=== PATIENT | female | born 1965 | race Caucasian/White ===

== ENCOUNTER 2024-04-07 14:54 | Inpatient (IN) | payer MEDICARE, OTHER ==
[~2024-04-07] VITALS: Ht 162.6 cm; Wt 49.4 kg
[2024-04-08 01:44] VITALS: BP 105/58; TEMP 98.4; O2SAT 98
[2024-04-08] MEDS ORDERED: LORAZEPAM 0.5 MG TABLET PO PRN (02:00)
[2024-04-08] MEDS ORDERED: TRAZ-257 PO (02:00)
[2024-04-08] MEDS ORDERED: MAG HYDROX/AL HYDROX/SIMETH 30 ML UDC PO PRN (02:00)
[2024-04-08] MEDS ORDERED: MAGNESIUM HYDROXIDE 30 ML UDC PO PRN (02:00)
[2024-04-08] MEDS ORDERED: ACETAMINOPHEN 325 MG TABLET PO PRN (02:00)
[2024-04-08] MEDS ORDERED: TEMAZEPAM 7.5 MG CAPSULE PO PRN (02:00)
[2024-04-08] MEDS ORDERED: ROSU20TA32 PO (02:04)
[2024-04-08] MEDS ORDERED: BISA5TAB10 PO (02:04)
[2024-04-08] MEDS ORDERED: LEVO-146 PO (02:06)
[2024-04-08] MEDS ORDERED: METF-440 PO (02:07)
[2024-04-08] MEDS ORDERED: GABA-532 PO (02:08)
[2024-04-08] MEDS ORDERED: DEUT12TA PO (02:13)
[2024-04-08] MEDS ORDERED: BENZ2TAB7 PO (02:14)
[2024-04-08] MEDS ORDERED: TRAM50TA2 PO (02:15)
[2024-04-08] MEDS ORDERED: LATA7.5D EACHEYE (02:17)
[2024-04-08] MEDS: BLOOD SUGAR DIAGNOSTIC 1 EACH STRIP IN ONE (02:19)
[2024-04-08 03:09] VITALS: BP 105/58; TEMP 98.4; O2SAT 98
[2024-04-08] MEDS ORDERED: DEXTROSE 50%-WATER 50 ML DISP.SYRIN IV PRN (06:30)
[2024-04-08] MEDS ORDERED: INSULIN REGULAR, HUMAN 100 UNIT/ML 3 ML VIAL SQ PRN (06:30)
[2024-04-08 07:56] LABS: BASOPHILS % (AUTO) 0.7 % (0.0-2.0); EOSINOPHILS # (AUTO) 0.1 K/uL (0.0-0.7); EOSINOPHILS % (AUTO) 1.4 % (0.0-6.0); HEMATOCRIT 43 % (33-45); LYMPHOCYTES # (AUTO) 1.8 K/uL (0.8-4.8); LYMPHOCYTES % (AUTO) 31.7 % (20.0-44.0); MEAN CORPUSCULAR HEMOGLOBIN 30 PG (26.0-33.0); MEAN CORPUSCULAR HGB CONC 33 g/dl (31.0-36.0); MEAN CORPUSCULAR VOLUME 92 fL (82-100); MONOCYTES # (AUTO) 0.5 K/uL (0.1-1.30); MONOCYTES % (AUTO) 9.3 % (2.0-12.0); NEUTROPHILS # (AUTO) 3.3 K/uL (1.8-8.9); NEUTROPHILS % (AUTO) 56.9 % (43.0-81.0); PLATELET COUNT (AUTO) 233 K/uL (150-450); RED BLOOD CELL COUNT(AUTO) 4.67 MIL/uL (4.0-5.2); RED CELL DISTRIBUTION WIDTH 13.2 % (11.5-15.0); WHITE BLOOD COUNT (AUTO) 5.7 K/uL (4.3-11.0)
[2024-04-08 08:00] VITALS: BP 120/61; TEMP 98.1; O2SAT 98
[2024-04-08 08:30] LABS: CALCIUM, SERUM 9.9 mg/dL (8.5-10.1); CREATININE 0.5 mg/dL (0.6-1.3); POTASSIUM 4.3 mmol/L (3.5-5.1)
[2024-04-08] MEDS: BLOOD SUGAR DIAGNOSTIC 1 EACH STRIP IN SCH (08:39)
[2024-04-08 16:00] VITALS: BP 100/60; TEMP 97.9; O2SAT 100
[2024-04-08] MEDS: risperiDONE 1 MG TABLET PO SCH (17:42)
[2024-04-08] MEDS: DIVALPROEX SODIUM 250 MG TABLET.DR PO SCH (17:42)
[2024-04-08] MEDS ORDERED: BISACODYL (5 MG) 5 MG TABLET.DR PO PRN (19:00)
[2024-04-08 20:00] VITALS: BP 133/65; TEMP 98; O2SAT 100
[2024-04-09] MEDS: LEVOTHYROXINE SODIUM 50 MCG TABLET PO SCH (07:47)
[2024-04-09 08:00] VITALS: BP 145/68; TEMP 98; O2SAT 99
[2024-04-09] MEDS: ATORVASTATIN 40 MG TABLET PO SCH (08:29)
[2024-04-09] MEDS: METFORMIN 500 MG TABLET PO SCH (08:29)
[2024-04-09] MEDS: GABAPENTIN 100 MG CAPSULE PO SCH (08:29)
[2024-04-09 16:00] VITALS: BP 139/61; TEMP 97.7; O2SAT 97
[2024-04-09 20:32] VITALS: BP 121/62; TEMP 97.9; O2SAT 98
[2024-04-10 08:00] VITALS: BP 119/57; TEMP 98.4; O2SAT 100
[2024-04-10] MEDS: GLUCERNA SHAKE 237 ML CAN PO SCH (08:14)
[2024-04-10 16:09] VITALS: BP 127/57; TEMP 98.6; O2SAT 99
[2024-04-10] MEDS: LATANOPROST EYE DROP 0.005% 2.5 ML BOTTLE EACHEYE SCH (18:11)
[2024-04-10 21:01] VITALS: BP 120/56; TEMP 98.2; O2SAT 99
[2024-04-11 08:00] VITALS: BP 134/64; TEMP 98.6; O2SAT 99
[2024-04-11] MEDS: TRAMADOL HCL 50 MG TABLET PO PRN (08:25)
[2024-04-11 16:00] VITALS: BP 124/53; TEMP 98.6; O2SAT 100
[2024-04-11 20:32] VITALS: BP 121/64; TEMP 98.6; O2SAT 97
[2024-04-12 08:00] VITALS: BP 120/62; TEMP 98; O2SAT 100
[2024-04-12 16:21] VITALS: BP 136/57; TEMP 98; O2SAT 96
[2024-04-12 20:26] VITALS: BP 127/57; TEMP 98.4; O2SAT 99
[2024-04-13 08:00] VITALS: BP 122/66; TEMP 97.9; O2SAT 97
[2024-04-13 16:17] VITALS: BP 117/53; TEMP 97.8; O2SAT 98
[2024-04-13 20:00] VITALS: BP 120/47; TEMP 97.9; O2SAT 100
[2024-04-14 07:30] VITALS: BP 114/55; TEMP 97.9; O2SAT 97
[2024-04-14 15:30] VITALS: BP 124/69; TEMP 98; O2SAT 100
[2024-04-14 20:00] VITALS: BP 128/60; TEMP 98.4; O2SAT 97
[2024-04-14] MEDS: risperiDONE 1 MG TABLET PO SCH (21:27)
[2024-04-15 08:10] VITALS: BP 116/69; TEMP 97.5; O2SAT 95
[2024-04-15 16:33] VITALS: BP 117/61; TEMP 98; O2SAT 99
[2024-04-15 20:00] VITALS: BP 125/67; TEMP 98.4; O2SAT 96
[2024-04-16 08:17] VITALS: BP 122/67; TEMP 97.4; O2SAT 96
[2024-04-16 15:45] VITALS: BP 138/66; TEMP 98.4; O2SAT 98
[2024-04-16 20:36] VITALS: BP 132/68; TEMP 98.2; O2SAT 99
[2024-04-17 07:00] VITALS: BP_SYST 123; BP_SYST 152; BP_DIAS 54; BP_DIAS 65; TEMP 98.1; O2SAT 100; O2SAT 99
[2024-04-17 08:03] LABS: BASOPHILS % (AUTO) 0.3 % (0.0-2.0); EOSINOPHILS % (AUTO) 0.5 % (0.0-6.0); HEMATOCRIT 44 % (33-45); HEMOGLOBIN 14.6 g/dL (11.5-14.8); LYMPHOCYTES # (AUTO) 2.1 K/uL (0.8-4.8); LYMPHOCYTES % (AUTO) 28.4 % (20.0-44.0); MEAN CORPUSCULAR HEMOGLOBIN 30 PG (26.0-33.0); MEAN CORPUSCULAR HGB CONC 33 g/dl (31.0-36.0); MEAN CORPUSCULAR VOLUME 91 fL (82-100); MONOCYTES # (AUTO) 0.6 K/uL (0.1-1.30); MONOCYTES % (AUTO) 7.5 % (2.0-12.0); NEUTROPHILS # (AUTO) 4.7 K/uL (1.8-8.9); NEUTROPHILS % (AUTO) 63.3 % (43.0-81.0); PLATELET COUNT (AUTO) 236 K/uL (150-450); RED BLOOD CELL COUNT(AUTO) 4.83 MIL/uL (4.0-5.2); RED CELL DISTRIBUTION WIDTH 12.9 % (11.5-15.0); WHITE BLOOD COUNT (AUTO) 7.4 K/uL (4.3-11.0)
[2024-04-17 08:20] LABS: ALBUMIN 3.2 g/dL (3.4-5.0); BILIRUBIN,TOTAL 0.3 mg/dL (0.2-1.0); CREATININE 0.6 mg/dL (0.6-1.3); POTASSIUM 4.3 mmol/L (3.5-5.1); TOTAL PROTEIN, SERUM 7.1 g/dL (6.4-8.2)
[2024-04-17 16:00] VITALS: BP 110/62; TEMP 97.9; O2SAT 95
[2024-04-17 20:09] VITALS: BP 116/54; TEMP 97.9; O2SAT 98
[2024-04-18 08:00] VITALS: BP 131/57; TEMP 97.7; O2SAT 100
[2024-04-18] MEDS ORDERED: ATORVASTATIN 40 MG TABLET PO SCH (21:00)
== END 2024-04-18 15:00 | DRG 885 ==
LOC: GPS 04-08 00:55
PROVIDERS: ADMIT Nurse Practitioner Psychiatric/Mental Health; ATTEND Nurse Practitioner Acute Care
DX: F25.0 Schizoaffective disorder, bipolar type (principal); F29 Unspecified psychosis not due to a substance or known physiological condition; F41.9 Anxiety disorder, unspecified; G20.A1 Parkinson's disease without dyskinesia, without mention of fluctuations; R41.9 Unspecified symptoms and signs involving cognitive functions and awareness; I10 Essential (primary) hypertension; Z79.899 Other long term (current) drug therapy; E86.0 Dehydration; R79.89 Other specified abnormal findings of blood chemistry; E11.9 Type 2 diabetes mellitus without complications; E78.5 Hyperlipidemia, unspecified; E03.9 Hypothyroidism, unspecified; Z91.199 Patient's noncompliance with other medical treatment and regimen due to unspecified reason; Z73.6 Limitation of activities due to disability
CPT/HCPCS: 36415; 80048-TC; 80053-TC; 80061-TC; 80164-TC; 82962-TC; 84443-TC; 85025-TC; 87081-TC; 97110-TC; 97116-TC; J1815

== ENCOUNTER 2024-04-29 15:55 | Inpatient (IN) | payer MEDICARE, OTHER ==
[~2024-04-29] VITALS: Ht 162.6 cm; Wt 63.0 kg
[~2024-04-29 15:55] MED LIST: BISA5TAB10 PO; GABA-532 PO; LATA7.5D EACHEYE; LEVO-146 PO; METF-440 PO; ROSU20TA32 PO; TRAM50TA2 PO
[2024-04-29] MEDS ORDERED: MAG30ORA PO (16:36)
[2024-04-29] MEDS ORDERED: ACET-868 PO (16:36)
[2024-04-29] MEDS ORDERED: TEMA7.5C PO (16:36)
[2024-04-29] MEDS ORDERED: DIVA-76 PO (16:36)
[2024-04-29] MEDS ORDERED: MAGN400O6 PO (16:36)
[2024-04-29] MEDS ORDERED: TRAM50TA2 PO (16:36)
[2024-04-29] MEDS ORDERED: TYL2T MC (16:36)
[2024-04-29] MEDS ORDERED: ATOR80TA PO (16:36)
[2024-04-29] MEDS ORDERED: LORA-258 PO (16:36)
[2024-04-29] MEDS ORDERED: RISP1TAB7 PO (16:36)
[2024-04-29] MEDS ORDERED: NUT.237L28 PO (16:36)
[2024-04-29 16:48] LABS: BASOPHILS % (AUTO) 0.5 % (0.0-2.0); EOSINOPHILS % (AUTO) 0.6 % (0.0-6.0); HEMATOCRIT 35 % (33-45); HEMOGLOBIN 11.8 g/dL (11.5-14.8); LYMPHOCYTES # (AUTO) 1.9 K/uL (0.8-4.8); LYMPHOCYTES % (AUTO) 23.9 % (20.0-44.0); MEAN CORPUSCULAR HEMOGLOBIN 31 PG (26.0-33.0); MEAN CORPUSCULAR HGB CONC 34 g/dl (31.0-36.0); MEAN CORPUSCULAR VOLUME 93 fL (82-100); MONOCYTES # (AUTO) 0.8 K/uL (0.1-1.30); MONOCYTES % (AUTO) 10.2 % (2.0-12.0); NEUTROPHILS % (AUTO) 64.8 % (43.0-81.0); PLATELET COUNT (AUTO) 224 K/uL (150-450); RED CELL DISTRIBUTION WIDTH 13.5 % (11.5-15.0); WHITE BLOOD COUNT (AUTO) 7.8 K/uL (4.3-11.0)
[2024-04-29 17:23] LABS: APPEARANCE,URINE Clear (CLEAR); BILIRUBIN,URINE Negative (NEGATIVE); BLOOD, URINE Trace-lysed Ery/uL (NEGATIVE); COLOR,URINE LIGHT YELLOW (YELLOW); KETONES,URINE Negative (NEGATIVE); LEUKOCYTE ESTERASE ,URINE Negative (NEGATIVE); NITRITE, URINE Negative (NEGATIVE); PH,URINE 6.5 (5.0-8.0); PROTEIN,URINE Negative (NEGATIVE); UGLUCOSE Negative (NEGATIVE); UROBILINOGEN,URINE 0.2 EU/dL (0.2)
[2024-04-29 17:38] LABS: CALCIUM, SERUM 8.9 mg/dL (8.5-10.1); CARBON DIOXIDE 28 mmol/L (21-32); CHLORIDE 103 mmol/L (98-107); CREATININE 0.6 mg/dL (0.6-1.3); GLUCOSE 84 mg/dL (74-106); SODIUM SERUM 136 mmol/L (136-145); UREA NITROGEN, BLOOD 18 mg/dL (7-18)
[2024-04-29 17:51] LABS: AMPHETAMINE, URINE NEGATIVE (NEGATIVE); BARBITURATE, URINE NEGATIVE (NEGATIVE); BENZODIAZEPINE, URINE NEGATIVE (NEGATIVE); CANNABINOID, URINE NEGATIVE (NEGATIVE); COCCAINE, URINE NEGATIVE (NEGATIVE); OPIATE, URINE NEGATIVE (NEGATIVE); PHENCYCLIDINE SCREEN,URINE NEGATIVE (NEGATIVE)
[2024-04-29 17:52] LABS: ACETAMINOPHEN 1 ug/ml (10-30); ALANINE AMINOTRANSFERASE 38 U/L (12-78); ALBUMIN 3.3 g/dL (3.4-5.0); ALCOHOL, BLOOD < 3 mg/dL (0-10); ALKALINE PHOSPHATASE 60 U/L (46-116); BILIRUBIN,TOTAL 0.3 mg/dL (0.2-1.0); TOTAL PROTEIN, SERUM 6.1 g/dL (6.4-8.2)
[2024-04-29 17:55] LABS: SALICYLATE 0.7 mg/dL (2.8-20.0)
[2024-04-29 18:02] LABS: ADD URINE CULTURE NO; BACTERIA,URINE Rare /HPF (None Seen); WBC,URINE 0-2 /HPF (0-3)
[2024-04-29 18:03] LABS: SQUAMOUS EPITHELIAL CELL,UR Few /HPF (None Seen)
[2024-04-29 19:53] LABS: ASPARTATE AMINOTRANSFERASE 27 U/L (15-37)
[2024-04-29 22:30] VITALS: BP 111/54; TEMP 97.9; O2SAT 98
[2024-04-29] MEDS ORDERED: MAG HYDROX/AL HYDROX/SIMETH 30 ML UDC PO PRN (22:30)
[2024-04-29] MEDS ORDERED: TEMAZEPAM 7.5 MG CAPSULE PO PRN ×2 (22:30)
[2024-04-29] MEDS ORDERED: MAGNESIUM HYDROXIDE 30 ML UDC PO PRN (22:30)
[2024-04-29] MEDS ORDERED: LORAZEPAM 0.5 MG TABLET PO PRN ×2 (22:30)
[2024-04-29] MEDS ORDERED: ACETAMINOPHEN 325 MG TABLET PO PRN (22:30)
[2024-04-29] MEDS ORDERED: TRAMADOL HCL 50 MG TABLET PO PRN (23:00)
[2024-04-29] MEDS: BLOOD SUGAR DIAGNOSTIC 1 EACH STRIP IN ONE (23:20)
[2024-04-29 23:46] VITALS: BP 130/73; TEMP 98; O2SAT 98
[2024-04-30 06:53] LABS: BASOPHILS % (AUTO) 0.4 % (0.0-2.0); EOSINOPHILS # (AUTO) 0.1 K/uL (0.0-0.7); EOSINOPHILS % (AUTO) 0.9 % (0.0-6.0); HEMATOCRIT 37 % (33-45); HEMOGLOBIN 11.9 g/dL (11.5-14.8); LYMPHOCYTES # (AUTO) 2.2 K/uL (0.8-4.8); LYMPHOCYTES % (AUTO) 30.5 % (20.0-44.0); MEAN CORPUSCULAR HEMOGLOBIN 30 PG (26.0-33.0); MEAN CORPUSCULAR HGB CONC 33 g/dl (31.0-36.0); MEAN CORPUSCULAR VOLUME 92 fL (82-100); MONOCYTES # (AUTO) 0.7 K/uL (0.1-1.30); MONOCYTES % (AUTO) 10.3 % (2.0-12.0); NEUTROPHILS # (AUTO) 4.1 K/uL (1.8-8.9); NEUTROPHILS % (AUTO) 57.9 % (43.0-81.0); PLATELET COUNT (AUTO) 237 K/uL (150-450); RED BLOOD CELL COUNT(AUTO) 3.96 MIL/uL (4.0-5.2); RED CELL DISTRIBUTION WIDTH 13.5 % (11.5-15.0); WHITE BLOOD COUNT (AUTO) 7.1 K/uL (4.3-11.0)
[2024-04-30 07:04] LABS: CALCIUM, SERUM 9.2 mg/dL (8.5-10.1); CREATININE 0.6 mg/dL (0.6-1.3); POTASSIUM 4.2 mmol/L (3.5-5.1)
[2024-04-30] MEDS: LEVOTHYROXINE SODIUM 50 MCG TABLET PO SCH (07:35)
[2024-04-30 08:00] VITALS: BP 106/65; TEMP 98; O2SAT 99
[2024-04-30] MEDS: GLUCERNA SHAKE 237 ML CAN PO SCH (08:04)
[2024-04-30] MEDS: GABAPENTIN 100 MG CAPSULE PO SCH (08:33)
[2024-04-30] MEDS: METFORMIN 500 MG TABLET PO SCH (08:33)
[2024-04-30] MEDS ORDERED: GLUCERNA SHAKE 237 ML CAN PO SCH (09:00)
[2024-04-30] MEDS: DIVALPROEX SODIUM 250 MG TABLET.DR PO SCH (14:17)
[2024-04-30] MEDS: risperiDONE 1 MG TABLET PO SCH (14:17)
[2024-04-30 16:00] VITALS: BP 111/64; TEMP 98.9; O2SAT 98
[2024-04-30 20:23] VITALS: BP 115/68; TEMP 98; O2SAT 98
[2024-04-30] MEDS: ATORVASTATIN 40 MG TABLET PO SCH (21:35)
[2024-04-30] MEDS: LATANOPROST EYE DROP 0.005% 2.5 ML BOTTLE OP SCH (21:36)
[2024-05-01] MEDS: LORAZEPAM 0.5 MG TABLET PO PRN (00:08)
[2024-05-01 08:00] VITALS: BP 118/53; TEMP 97.8; O2SAT 97
[2024-05-01 16:00] VITALS: BP 124/56; TEMP 98; O2SAT 96
[2024-05-01 21:02] VITALS: BP 104/58; TEMP 98; O2SAT 99
[2024-05-02] MEDS: TEMAZEPAM 7.5 MG CAPSULE PO PRN (02:36)
[2024-05-02 07:02] LABS: APPEARANCE,URINE CLEAR (CLEAR); BILIRUBIN,URINE NEGATIVE (NEGATIVE); BLOOD, URINE NEGATIVE Ery/uL (NEGATIVE); COLOR,URINE YELLOW (YELLOW); KETONES,URINE NEGATIVE (NEGATIVE); LEUKOCYTE ESTERASE ,URINE NEGATIVE (NEGATIVE); NITRITE, URINE NEGATIVE (NEGATIVE); PROTEIN,URINE NEGATIVE (NEGATIVE); UGLUCOSE NEGATIVE (NEGATIVE); UROBILINOGEN,URINE 0.2 EU/dL (0.2)
[2024-05-02 08:00] VITALS: BP 103/50; TEMP 98.6; O2SAT 100
[2024-05-02 16:00] VITALS: BP 118/56; TEMP 98; O2SAT 100
[2024-05-02 20:00] VITALS: BP 113/50; TEMP 98.2; O2SAT 98
[2024-05-02 20:13] VITALS: BP 113/50; TEMP 98.2; O2SAT 98
[2024-05-02] MEDS: DIVALPROEX SODIUM 500 MG TABLET.DR PO SCH (21:00)
[2024-05-03 08:00] VITALS: BP 125/56; TEMP 98; O2SAT 100
[2024-05-03 16:19] VITALS: BP 106/45; TEMP 98; O2SAT 97
[2024-05-03 20:53] VITALS: BP 107/47; TEMP 98.3; O2SAT 100
[2024-05-04 08:00] VITALS: BP 123/56; TEMP 97; O2SAT 98
[2024-05-04 16:00] VITALS: BP 116/54; TEMP 97.7; O2SAT 100
[2024-05-04 20:00] VITALS: BP 129/65; TEMP 98.6; O2SAT 98
[2024-05-05 08:00] VITALS: BP 104/87; TEMP 97.8; O2SAT 100
[2024-05-05] MEDS: VALPROIC ACID 250 MG/5 ML UDC PO SCH (09:38)
[2024-05-05 16:00] VITALS: BP 116/80; TEMP 97.8; O2SAT 100
[2024-05-05 20:00] VITALS: BP 116/59; TEMP 97.8; O2SAT 98
[2024-05-06 08:00] VITALS: BP 126/68; TEMP 98; O2SAT 96
[2024-05-06 16:00] VITALS: BP 107/64; TEMP 97.5; O2SAT 100
[2024-05-06] MEDS: risperiDONE 1 MG TABLET PO SCH ×2 (16:07→21:13)
[2024-05-06 20:00] VITALS: BP 120/67; TEMP 97.5; O2SAT 97
[2024-05-07 08:00] VITALS: BP 119/57; TEMP 97.6; O2SAT 97
[2024-05-07 16:00] VITALS: BP 111/67; TEMP 97.6; O2SAT 97
[2024-05-07 20:11] VITALS: BP 105/65; TEMP 97.8; O2SAT 98
[2024-05-08 08:00] VITALS: BP 132/68; TEMP 98.6; O2SAT 97
[2024-05-08 16:00] VITALS: BP 131/66; TEMP 97.6; O2SAT 99
[2024-05-08 20:35] VITALS: BP 131/65; TEMP 98.4; O2SAT 100
[2024-05-09 08:00] VITALS: BP 108/59; TEMP 97.8; O2SAT 97
[2024-05-09 16:00] VITALS: BP 106/52; TEMP 98.1; O2SAT 98
[2024-05-09 20:25] VITALS: BP 127/54; TEMP 98.1; O2SAT 98
[2024-05-09 20:26] VITALS: BP 127/54; TEMP 98.1; O2SAT 98
[2024-05-10 08:00] VITALS: BP 134/50; TEMP 98.7; O2SAT 99
[2024-05-10 16:17] VITALS: BP 160/60; TEMP 97.6; O2SAT 100
[2024-05-10 20:13] VITALS: BP 113/54; TEMP 98; O2SAT 99
[2024-05-10 20:48] VITALS: BP 113/54; TEMP 98; O2SAT 99
[2024-05-11 08:00] VITALS: BP 112/55; TEMP 97.6; O2SAT 97
[2024-05-11 16:00] VITALS: BP 100/53; TEMP 98.8; O2SAT 98
[2024-05-11 20:00] VITALS: BP 116/52; TEMP 98.6; O2SAT 98
[2024-05-12 08:00] VITALS: BP 103/55; TEMP 98.2; O2SAT 97
[2024-05-12 16:00] VITALS: BP 124/62; TEMP 98.1; O2SAT 98
[2024-05-12 20:00] VITALS: BP 132/63; TEMP 98.2; O2SAT 97
[2024-05-13 07:13] LABS: BASOPHILS % (AUTO) 0.5 % (0.0-2.0); EOSINOPHILS # (AUTO) 0.1 K/uL (0.0-0.7); EOSINOPHILS % (AUTO) 1.4 % (0.0-6.0); HEMATOCRIT 40 % (33-45); HEMOGLOBIN 13.7 g/dL (11.5-14.8); LYMPHOCYTES # (AUTO) 1.6 K/uL (0.8-4.8); LYMPHOCYTES % (AUTO) 32.7 % (20.0-44.0); MEAN CORPUSCULAR HEMOGLOBIN 31 PG (26.0-33.0); MEAN CORPUSCULAR HGB CONC 34 g/dl (31.0-36.0); MEAN CORPUSCULAR VOLUME 91 fL (82-100); MONOCYTES # (AUTO) 0.4 K/uL (0.1-1.30); MONOCYTES % (AUTO) 8.1 % (2.0-12.0); NEUTROPHILS # (AUTO) 2.9 K/uL (1.8-8.9); NEUTROPHILS % (AUTO) 57.3 % (43.0-81.0); PLATELET COUNT (AUTO) 185 K/uL (150-450); RED BLOOD CELL COUNT(AUTO) 4.44 MIL/uL (4.0-5.2); RED CELL DISTRIBUTION WIDTH 13.4 % (11.5-15.0)
[2024-05-13 07:35] LABS: CALCIUM, SERUM 9.4 mg/dL (8.5-10.1); CREATININE 0.7 mg/dL (0.6-1.3); POTASSIUM 4.4 mmol/L (3.5-5.1)
[2024-05-13 08:00] VITALS: BP 132/63; TEMP 97.9; O2SAT 98
== END 2024-05-13 13:15 | DRG 885 ==
LOC: ER 15:58 → GPS 21:58
PROVIDERS: ADMIT Psychiatry & Neurology Psychiatry; ATTEND Nurse Practitioner Family
DX: F25.0 Schizoaffective disorder, bipolar type (principal); E46 Unspecified protein-calorie malnutrition; F29 Unspecified psychosis not due to a substance or known physiological condition; H40.9 Unspecified glaucoma; Z20.822 Contact with and (suspected) exposure to COVID-19; E11.9 Type 2 diabetes mellitus without complications; I10 Essential (primary) hypertension; Z79.84 Long term (current) use of oral hypoglycemic drugs; Z79.890 Hormone replacement therapy; Z79.899 Other long term (current) drug therapy; E78.5 Hyperlipidemia, unspecified; E03.9 Hypothyroidism, unspecified; E88.09 Other disorders of plasma-protein metabolism, not elsewhere classified; F41.9 Anxiety disorder, unspecified; G20.A1 Parkinson's disease without dyskinesia, without mention of fluctuations; Z91.199 Patient's noncompliance with other medical treatment and regimen due to unspecified reason; Z73.6 Limitation of activities due to disability; G31.84 Mild cognitive impairment of uncertain or unknown etiology
CPT/HCPCS: 36415; 80048-TC; 80061-TC; 80076-TC; 80164-TC; 81001; 85025-TC; 87086-TC; 97116-TC; 97530-TC; G0480

== ENCOUNTER 2024-05-19 23:00 | Inpatient (IN) | payer MEDICARE, OTHER ==
[~2024-05-19] VITALS: Ht 170.2 cm; Wt 72.1 kg
[~2024-05-19 23:00] MED LIST changes: +ACET-868 PO; +ATOR80TA PO; +MAG30ORA PO; +MAGN400O6 PO; +NUT.237L28 PO; -ROSU20TA32 PO; +TYL2T MC
[2024-05-19] MEDS ORDERED: LORA-259 PO (23:09)
[2024-05-19] MEDS ORDERED: RISP1TAB7 PO ×2 (23:09)
[2024-05-19] MEDS ORDERED: DIVA500T2 PO (23:09)
[2024-05-19] MEDS ORDERED: TEMA7.5C12 PO (23:09)
[2024-05-19 23:17] LABS: BASOPHILS % (AUTO) 0.4 % (0.0-2.0); EOSINOPHILS # (AUTO) 0.1 K/uL (0.0-0.7); EOSINOPHILS % (AUTO) 1.3 % (0.0-6.0); HEMATOCRIT 39 % (33-45); HEMOGLOBIN 12.9 g/dL (11.5-14.8); LYMPHOCYTES # (AUTO) 2.5 K/uL (0.8-4.8); LYMPHOCYTES % (AUTO) 32.5 % (20.0-44.0); MEAN CORPUSCULAR HEMOGLOBIN 31 PG (26.0-33.0); MEAN CORPUSCULAR HGB CONC 33 g/dl (31.0-36.0); MEAN CORPUSCULAR VOLUME 92 fL (82-100); MONOCYTES # (AUTO) 0.9 K/uL (0.1-1.30); MONOCYTES % (AUTO) 11.5 % (2.0-12.0); NEUTROPHILS # (AUTO) 4.1 K/uL (1.8-8.9); NEUTROPHILS % (AUTO) 54.3 % (43.0-81.0); PLATELET COUNT (AUTO) 169 K/uL (150-450); RED BLOOD CELL COUNT(AUTO) 4.21 MIL/uL (4.0-5.2); RED CELL DISTRIBUTION WIDTH 13.4 % (11.5-15.0); WHITE BLOOD COUNT (AUTO) 7.6 K/uL (4.3-11.0)
[2024-05-19 23:38] LABS: ALANINE AMINOTRANSFERASE 35 U/L (12-78); ALBUMIN 3.4 g/dL (3.4-5.0); ALCOHOL, BLOOD < 3 mg/dL (0-10); ALKALINE PHOSPHATASE 86 U/L (46-116); ASPARTATE AMINOTRANSFERASE 24 U/L (15-37); BILIRUBIN,DIRECT 0.1 mg/dL (0.0-0.2); BILIRUBIN,TOTAL 0.4 mg/dL (0.2-1.0); CALCIUM, SERUM 9.3 mg/dL (8.5-10.1); CARBON DIOXIDE 32 mmol/L (21-32); CHLORIDE 104 mmol/L (98-107); CREATININE 0.7 mg/dL (0.6-1.3); GLUCOSE 114 mg/dL (74-106); POTASSIUM 3.9 mmol/L (3.5-5.1); SODIUM SERUM 141 mmol/L (136-145); TOTAL PROTEIN, SERUM 6.7 g/dL (6.4-8.2); UREA NITROGEN, BLOOD 18 mg/dL (7-18)
[2024-05-19 23:41] LABS: ACETAMINOPHEN <10 ug/ml (10-30); SALICYLATE 0.4 mg/dL (2.8-20.0)
[2024-05-19 23:41] LABS: APPEARANCE,URINE CLEAR (CLEAR); BILIRUBIN,URINE NEGATIVE (NEGATIVE); BLOOD, URINE NEGATIVE Ery/uL (NEGATIVE); COLOR,URINE YELLOW (YELLOW); KETONES,URINE NEGATIVE (NEGATIVE); LEUKOCYTE ESTERASE ,URINE 1+ (NEGATIVE); NITRITE, URINE NEGATIVE (NEGATIVE); PH,URINE 7.5 (5.0-8.0); PROTEIN,URINE NEGATIVE (NEGATIVE); UGLUCOSE NEGATIVE (NEGATIVE)
[2024-05-19 23:49] LABS: ADD URINE CULTURE YES; BACTERIA,URINE Few /HPF (None Seen); SQUAMOUS EPITHELIAL CELL,UR Rare /HPF (None Seen)
[2024-05-19 23:56] LABS: AMPHETAMINE, URINE NEGATIVE (NEGATIVE); BARBITURATE, URINE NEGATIVE (NEGATIVE); BENZODIAZEPINE, URINE NEGATIVE (NEGATIVE); CANNABINOID, URINE NEGATIVE (NEGATIVE); COCCAINE, URINE NEGATIVE (NEGATIVE); OPIATE, URINE NEGATIVE (NEGATIVE); PHENCYCLIDINE SCREEN,URINE NEGATIVE (NEGATIVE)
[2024-05-20] MEDS ORDERED: BISACODYL (5 MG) 5 MG TABLET.DR PO PRN (00:30)
[2024-05-20] MEDS ORDERED: MAG HYDROX/AL HYDROX/SIMETH 30 ML UDC PO PRN (02:30)
[2024-05-20] MEDS ORDERED: TEMAZEPAM 7.5 MG CAPSULE PO PRN ×2 (02:30→22:00)
[2024-05-20] MEDS ORDERED: MAGNESIUM HYDROXIDE 30 ML UDC PO PRN (02:30)
[2024-05-20] MEDS ORDERED: LORAZEPAM 0.5 MG TABLET PO PRN (02:30)
[2024-05-20] MEDS: BLOOD SUGAR DIAGNOSTIC 1 EACH STRIP IN ONE (02:40)
[2024-05-20] MEDS: LORAZEPAM 0.5 MG TABLET PO PRN (02:49)
[2024-05-20 03:27] VITALS: BP 125/74; TEMP 98; O2SAT 98
[2024-05-20 08:00] VITALS: BP 113/62; TEMP 97.8; O2SAT 98
[2024-05-20] MEDS: METFORMIN 500 MG TABLET PO SCH (08:14)
[2024-05-20] MEDS: CEPHALEXIN MONOHYDRATE 500 MG CAPSULE PO SCH (08:14)
[2024-05-20] MEDS: LEVOTHYROXINE SODIUM 50 MCG TABLET PO SCH (08:14)
[2024-05-20] MEDS: MENTHOL/CETYLPYRD (CEPACOL) 1 LOZ LOZENGE PO PRN (12:15)
[2024-05-20] MEDS: BLOOD SUGAR DIAGNOSTIC 1 EACH STRIP IN SCH (13:30)
[2024-05-20] MEDS ORDERED: DEXTROSE 50%-WATER 50 ML DISP.SYRIN IV PRN (13:30)
[2024-05-20] MEDS ORDERED: NITROFURANTOIN MACROCRYSTAL 50 MG CAPSULE PO SCH (13:30)
[2024-05-20] MEDS ORDERED: INSULIN REGULAR, HUMAN 100 UNIT/ML 3 ML VIAL SQ PRN (13:30)
[2024-05-20] MEDS: NITROFURANTOIN/MONOHYDRATE MACROCRYSTALS 100 MG CAPSULE PO SCH (13:58)
[2024-05-20] MEDS: GABAPENTIN 100 MG CAPSULE PO SCH (13:58)
[2024-05-20] MEDS ORDERED: risperiDONE 1 MG TABLET PO SCH (15:00)
[2024-05-20 16:00] VITALS: BP 113/53; TEMP 97.8; O2SAT 99
[2024-05-20] MEDS: risperiDONE 1 MG TABLET PO SCH ×2 (16:45→21:26)
[2024-05-20] MEDS: LATANOPROST EYE DROP 0.005% 2.5 ML BOTTLE EACHEYE SCH (17:23)
[2024-05-20 20:00] VITALS: BP 115/63; TEMP 98; O2SAT 99
[2024-05-20] MEDS: DIVALPROEX SODIUM 500 MG TABLET.DR PO SCH (20:19)
[2024-05-20] MEDS: ATORVASTATIN 40 MG TABLET PO SCH (21:26)
[2024-05-21 07:26] LABS: BASOPHILS % (AUTO) 0.3 % (0.0-2.0); EOSINOPHILS # (AUTO) 0.1 K/uL (0.0-0.7); EOSINOPHILS % (AUTO) 1.4 % (0.0-6.0); HEMATOCRIT 43 % (33-45); HEMOGLOBIN 13.9 g/dL (11.5-14.8); LYMPHOCYTES # (AUTO) 1.6 K/uL (0.8-4.8); LYMPHOCYTES % (AUTO) 24.3 % (20.0-44.0); MEAN CORPUSCULAR HEMOGLOBIN 30 PG (26.0-33.0); MEAN CORPUSCULAR HGB CONC 33 g/dl (31.0-36.0); MEAN CORPUSCULAR VOLUME 92 fL (82-100); MONOCYTES # (AUTO) 0.6 K/uL (0.1-1.30); MONOCYTES % (AUTO) 8.3 % (2.0-12.0); NEUTROPHILS # (AUTO) 4.4 K/uL (1.8-8.9); NEUTROPHILS % (AUTO) 65.7 % (43.0-81.0); PLATELET COUNT (AUTO) 182 K/uL (150-450); RED BLOOD CELL COUNT(AUTO) 4.61 MIL/uL (4.0-5.2); RED CELL DISTRIBUTION WIDTH 13.4 % (11.5-15.0); WHITE BLOOD COUNT (AUTO) 6.7 K/uL (4.3-11.0)
[2024-05-21 07:33] LABS: CREATININE 0.6 mg/dL (0.6-1.3); POTASSIUM 4.6 mmol/L (3.5-5.1)
[2024-05-21] MEDS: GLUCERNA SHAKE 237 ML CAN PO SCH (08:07)
[2024-05-21 09:13] VITALS: BP 107/58; TEMP 98.3; O2SAT 96
[2024-05-21 15:56] VITALS: BP 90/50; TEMP 97.7; O2SAT 98
[2024-05-21 20:38] VITALS: BP 111/52; TEMP 97.9; O2SAT 98
[2024-05-22 08:00] VITALS: BP 112/50; TEMP 97.8; O2SAT 97
[2024-05-22] MEDS: risperiDONE 1 MG TABLET PO SCH ×2 (08:22→21:31)
[2024-05-22 16:00] VITALS: BP 111/57; TEMP 97.7; O2SAT 98
[2024-05-22 20:51] VITALS: BP 97/56; TEMP 98; O2SAT 99
[2024-05-22 21:00] VITALS: BP 120/60; TEMP 97; O2SAT 97
[2024-05-23 08:00] VITALS: BP 108/51; TEMP 98.6; O2SAT 98
[2024-05-23 16:00] VITALS: BP 108/71; TEMP 98; O2SAT 98
[2024-05-23 21:15] VITALS: BP 112/53; TEMP 98; O2SAT 98
[2024-05-24] MEDS: LORAZEPAM 0.5 MG TABLET PO PRN (03:36)
[2024-05-24 10:26] VITALS: BP 114/62; TEMP 98.7; O2SAT 96
[2024-05-24 16:00] VITALS: BP 109/57; TEMP 97.9; O2SAT 97
[2024-05-24 20:02] VITALS: BP 114/50; TEMP 98.4; O2SAT 98
[2024-05-24] MEDS: DIVALPROEX SODIUM 250 MG TABLET.DR PO SCH (21:00)
[2024-05-25 08:00] VITALS: BP 121/61; TEMP 98.6; O2SAT 97
[2024-05-25] MEDS: risperiDONE 1 MG TABLET PO SCH (08:05)
[2024-05-25 16:00] VITALS: BP 118/67; TEMP 98.7; O2SAT 98
[2024-05-25 20:00] VITALS: BP 133/66; TEMP 98.2; O2SAT 98
[2024-05-26 08:00] VITALS: BP 119/56; TEMP 97.8; O2SAT 94
[2024-05-26 16:00] VITALS: BP 108/56; TEMP 98.1; O2SAT 98
[2024-05-26 20:00] VITALS: BP 114/53; TEMP 97.8; O2SAT 98
[2024-05-26] MEDS: ACETAMINOPHEN 325 MG TABLET PO PRN (20:04)
[2024-05-27] MEDS ORDERED: POLYVINYL ALCOHOL 15 ML BOTTLE EACHEYE PRN (02:00)
[2024-05-27 08:00] VITALS: BP 115/63; TEMP 98.7; O2SAT 96
[2024-05-27 16:00] VITALS: BP 116/65; TEMP 98.2; O2SAT 95
[2024-05-27] MEDS: DIVALPROEX SODIUM 500 MG TABLET.DR PO SCH ×2 (16:17→21:26)
[2024-05-27 20:00] VITALS: BP 105/43; TEMP 97.8; O2SAT 98
[2024-05-28 08:00] VITALS: BP 121/63; TEMP 98.1; O2SAT 95
[2024-05-28 16:00] VITALS: BP 121/60; TEMP 98.1; O2SAT 95
[2024-05-28 21:20] VITALS: BP 104/64; TEMP 98.2; O2SAT 98
[2024-05-29 08:00] VITALS: BP 119/64; TEMP 98.3; O2SAT 96
[2024-05-29 16:06] VITALS: BP 105/59; TEMP 98.3; O2SAT 97
[2024-05-29 20:48] VITALS: BP 120/52; TEMP 98.2; O2SAT 98
[2024-05-30 08:00] VITALS: BP 107/57; TEMP 97.9; O2SAT 98
== END 2024-05-30 15:35 | DRG 885 ==
LOC: ER 23:05 → GPS 05-20 01:13
PROVIDERS: ADMIT Psychiatry & Neurology Psychosomatic Medicine; ATTEND Internal Medicine
DX: F25.0 Schizoaffective disorder, bipolar type (principal); N39.0 Urinary tract infection, site not specified; F02.811 Dementia in other diseases classified elsewhere, unspecified severity, with agitation; Z91.148 Patient's other noncompliance with medication regimen for other reason; E03.9 Hypothyroidism, unspecified; R62.7 Adult failure to thrive; E78.5 Hyperlipidemia, unspecified; Z79.84 Long term (current) use of oral hypoglycemic drugs; R73.03 Prediabetes; I10 Essential (primary) hypertension; G20.A1 Parkinson's disease without dyskinesia, without mention of fluctuations; Z79.899 Other long term (current) drug therapy
CPT/HCPCS: 36415; 80048-TC; 80061-TC; 80076-TC; 80164-TC; 81001; 82962-TC; 85025-TC; 87081-TC; 97110-TC; 97116-TC; G0480; J1815

== ENCOUNTER 2024-06-28 02:57 | Inpatient (IN) | payer MEDICARE, OTHER ==
[~2024-06-28] VITALS: Ht 157.5 cm; Wt 48.5 kg
[~2024-06-28 02:57] MED LIST changes: +DIVA500T2 PO; +LORA-259 PO; +RISP1TAB7 PO; +TEMA7.5C12 PO
[2024-06-28] MEDS ORDERED: MAGNESIUM HYDROXIDE 30 ML UDC PO PRN ×2 (16:30→19:00)
[2024-06-28] MEDS ORDERED: MAG HYDROX/AL HYDROX/SIMETH 30 ML UDC PO PRN ×2 (16:30→19:00)
[2024-06-28] MEDS: BLOOD SUGAR DIAGNOSTIC 1 EACH STRIP IN ONE (17:15)
[2024-06-28] MEDS ORDERED: ACETAMINOPHEN 325 MG TABLET MC PRN (19:00)
[2024-06-28] MEDS ORDERED: ACETAMINOPHEN 325 MG TABLET PO PRN (19:00)
[2024-06-28] MEDS ORDERED: BISACODYL (5 MG) 5 MG TABLET.DR PO PRN (19:00)
[2024-06-28] MEDS ORDERED: DIVA-78 PO (19:07)
[2024-06-28] MEDS ORDERED: DEXT1LOZ24 PO (19:07)
[2024-06-28] MEDS ORDERED: POLY15DR40 EACHEYE (19:07)
[2024-06-28] MEDS ORDERED: DEXT15DR6 OP (19:07)
[2024-06-28 20:00] VITALS: BP 131/62; TEMP 98.8; O2SAT 99
[2024-06-28] MEDS ORDERED: DIVALPROEX SODIUM 500 MG TABLET.DR PO SCH (21:00)
[2024-06-28] MEDS: ATORVASTATIN 40 MG TABLET PO SCH (21:37)
[2024-06-29] MEDS: LORAZEPAM 0.5 MG TABLET PO PRN (03:45)
[2024-06-29 08:00] VITALS: BP 103/65; TEMP 98.1; O2SAT 98
[2024-06-29] MEDS: GABAPENTIN 100 MG CAPSULE PO SCH (08:10)
[2024-06-29] MEDS: LEVOTHYROXINE SODIUM 50 MCG TABLET PO SCH (08:10)
[2024-06-29] MEDS: GLUCERNA SHAKE 237 ML CAN PO SCH (08:11)
[2024-06-29 08:31] LABS: ALBUMIN 3.3 g/dL (3.4-5.0); BILIRUBIN,TOTAL 0.7 mg/dL (0.2-1.0); CALCIUM, SERUM 9.2 mg/dL (8.5-10.1); CREATININE 0.6 mg/dL (0.6-1.3); POTASSIUM 4.2 mmol/L (3.5-5.1); TOTAL PROTEIN, SERUM 7.2 g/dL (6.4-8.2)
[2024-06-29 09:29] LABS: THYROID STIMULATING HORMONE 0.81 uIU/mL (0.358-3.74)
[2024-06-29] MEDS: risperiDONE 1 MG TABLET PO SCH (11:39)
[2024-06-29] MEDS: DIVALPROEX SODIUM 500 MG TABLET.DR PO SCH (11:39)
[2024-06-29] MEDS: METFORMIN 500 MG TABLET PO SCH (11:39)
[2024-06-29 15:39] VITALS: BP 132/54; TEMP 98.6; O2SAT 98
[2024-06-29 17:01] LABS: CREATININE 0.8 mg/dL (0.6-1.3)
[2024-06-29] MEDS: LATANOPROST EYE DROP 0.005% 2.5 ML BOTTLE EACHEYE SCH (17:09)
[2024-06-29 20:00] VITALS: BP 118/72; TEMP 98.7; O2SAT 97
[2024-06-29] MEDS: ACETAMINOPHEN 325 MG TABLET PO PRN (20:41)
[2024-06-30] MEDS: TEMAZEPAM 7.5 MG CAPSULE PO PRN (01:58)
[2024-06-30 08:00] VITALS: BP 126/76; TEMP 98.6; O2SAT 95
[2024-06-30 16:00] VITALS: BP 110/61; TEMP 97.5; O2SAT 99
[2024-06-30 20:00] VITALS: BP 133/59; TEMP 97.9; O2SAT 96
[2024-06-30] MEDS: risperiDONE 1 MG TABLET PO SCH (21:34)
[2024-07-01 08:00] VITALS: BP 130/52; TEMP 97.9; O2SAT 93
[2024-07-01] MEDS: risperiDONE 1 MG TABLET PO SCH (08:05)
[2024-07-01] MEDS: DIVALPROEX SODIUM 250 MG TABLET.DR PO SCH (08:47)
[2024-07-01] MEDS ORDERED: DIVALPROEX SODIUM 250 MG TABLET.DR PO SCH (09:00)
[2024-07-01 16:00] VITALS: BP 107/53; TEMP 98.2; O2SAT 99
[2024-07-01 20:00] VITALS: BP 114/46; TEMP 98.4; O2SAT 98
[2024-07-02 08:00] VITALS: BP 112/66; TEMP 97.7; O2SAT 100
[2024-07-02 16:00] VITALS: BP 107/68; TEMP 98.1; O2SAT 97
[2024-07-02 20:34] VITALS: BP 110/52; TEMP 98.1; O2SAT 96
[2024-07-03 08:18] VITALS: BP 97/63; TEMP 98.1; O2SAT 95
[2024-07-03 16:04] VITALS: BP 101/52; TEMP 98.6; O2SAT 97
[2024-07-03 20:17] VITALS: BP 112/52; TEMP 98.3; O2SAT 98
[2024-07-04 08:24] VITALS: BP 114/56; TEMP 98.1; O2SAT 98
[2024-07-04 16:00] VITALS: BP 110/56; TEMP 97.9; O2SAT 98
[2024-07-04 20:00] VITALS: BP 116/52; TEMP 98.1; O2SAT 100
[2024-07-05 08:00] VITALS: BP 124/67; TEMP 97.8; O2SAT 98
[2024-07-05 16:00] VITALS: BP 118/50; TEMP 98; O2SAT 99
[2024-07-05 20:00] VITALS: BP 127/50; TEMP 97.8; O2SAT 99
[2024-07-06 08:00] VITALS: BP 130/61; TEMP 98.6; O2SAT 98
[2024-07-06 16:19] VITALS: BP 115/51; TEMP 97.9; O2SAT 98
[2024-07-06 22:17] VITALS: BP 115/60; TEMP 98.4; O2SAT 97
[2024-07-07 08:00] VITALS: BP 108/65; TEMP 97.9; O2SAT 98
[2024-07-07] MEDS: GLUCERNA SHAKE 237 ML CAN PO SCH (14:18)
[2024-07-07 16:00] VITALS: BP 120/55; TEMP 97.8; O2SAT 97
[2024-07-07 20:00] VITALS: BP 130/64; TEMP 98.4; O2SAT 98
[2024-07-08 08:00] VITALS: BP 105/60; TEMP 97.7; O2SAT 96
[2024-07-08 16:00] VITALS: BP 108/50; TEMP 98; O2SAT 98
[2024-07-08 20:40] VITALS: BP 110/63; TEMP 98; O2SAT 99
[2024-07-09 08:00] VITALS: BP 112/50; TEMP 97.7; O2SAT 95
[2024-07-09 16:00] VITALS: BP 146/62; TEMP 98; O2SAT 99
[2024-07-09 21:32] VITALS: BP 120/52; TEMP 98.2; O2SAT 98
[2024-07-10 08:00] VITALS: BP 126/57; TEMP 97.8; O2SAT 96
[2024-07-10 16:00] VITALS: BP 136/64; TEMP 97.5; O2SAT 98
[2024-07-10 20:24] VITALS: BP 124/57; TEMP 98; O2SAT 99
[2024-07-11 07:26] LABS: BASOPHILS % (AUTO) 0.6 % (0.0-2.0); EOSINOPHILS # (AUTO) 0.1 K/uL (0.0-0.7); HEMATOCRIT 39 % (33-45); HEMOGLOBIN 12.8 g/dL (11.5-14.8); LYMPHOCYTES % (AUTO) 38.5 % (20.0-44.0); MEAN CORPUSCULAR HEMOGLOBIN 31 PG (26.0-33.0); MEAN CORPUSCULAR HGB CONC 33 g/dl (31.0-36.0); MEAN CORPUSCULAR VOLUME 92 fL (82-100); MONOCYTES # (AUTO) 0.6 K/uL (0.1-1.30); MONOCYTES % (AUTO) 11.2 % (2.0-12.0); NEUTROPHILS # (AUTO) 2.4 K/uL (1.8-8.9); NEUTROPHILS % (AUTO) 47.7 % (43.0-81.0); PLATELET COUNT (AUTO) 176 K/uL (150-450); RED BLOOD CELL COUNT(AUTO) 4.21 MIL/uL (4.0-5.2); RED CELL DISTRIBUTION WIDTH 14.3 % (11.5-15.0); WHITE BLOOD COUNT (AUTO) 5.1 K/uL (4.3-11.0)
[2024-07-11 07:53] LABS: CALCIUM, SERUM 8.9 mg/dL (8.5-10.1); CREATININE 0.6 mg/dL (0.6-1.3); POTASSIUM 4.4 mmol/L (3.5-5.1)
[2024-07-11 08:00] VITALS: BP 117/57; TEMP 98.6; O2SAT 98
[2024-07-11 16:00] VITALS: BP 113/54; TEMP 98.2; O2SAT 98
[2024-07-11 20:57] VITALS: BP 117/52; TEMP 98.2; O2SAT 99
[2024-07-12 08:00] VITALS: BP 128/51; TEMP 97.8; O2SAT 96
== END 2024-07-12 13:22 | DRG 885 ==
LOC: GPS 15:54
PROVIDERS: ADMIT Psychiatry & Neurology Psychosomatic Medicine; ATTEND Internal Medicine
DX: F25.0 Schizoaffective disorder, bipolar type (principal); E44.1 Mild protein-calorie malnutrition; F29 Unspecified psychosis not due to a substance or known physiological condition; E03.9 Hypothyroidism, unspecified; E78.5 Hyperlipidemia, unspecified; G20.A1 Parkinson's disease without dyskinesia, without mention of fluctuations; R41.9 Unspecified symptoms and signs involving cognitive functions and awareness; F32.9 Major depressive disorder, single episode, unspecified; I10 Essential (primary) hypertension; R62.7 Adult failure to thrive; E88.09 Other disorders of plasma-protein metabolism, not elsewhere classified; Z53.20 Procedure and treatment not carried out because of patient's decision for unspecified reasons; Z91.148 Patient's other noncompliance with medication regimen for other reason; Z91.199 Patient's noncompliance with other medical treatment and regimen due to unspecified reason; Z79.84 Long term (current) use of oral hypoglycemic drugs; Z79.890 Hormone replacement therapy; Z79.899 Other long term (current) drug therapy; Z73.6 Limitation of activities due to disability; R73.03 Prediabetes
CPT/HCPCS: 36415; 80048-TC; 80053-TC; 80061-TC; 80164-TC; 82565-TC; 82962-TC; 84443-TC; 85025-TC; 87081-TC; 97110-TC; 97116-TC; 97530-TC